=== PATIENT | female | born 1930 | race Caucasian/White ===

== ENCOUNTER 2019-04-26 09:16 | Emergency (ER) | payer MEDICARE ==
[~2019-04-26] VITALS: Ht 160 cm; Wt 75.0 kg
[~2019-04-26 09:16] MED LIST: CARBAMAZEPIN100 M1 PO; DIFLUCAN150 MG PO; FLUARIX QUADRIV1 INJ IM; FLUZONE SPLT1 M1 IM; HYZAAR1 TA1 PO; LEVOTHYROXIN50 MC1 PO; METOPROLOL50 M1 PO; ZOLOFT25 MG PO
[2019-04-26 10:02] LABS: URINE BLOOD DIPSTICK LARGE (NEGATIVE); URINE GLUCOSE - DIPSTICK NEGATIVE (NEGATIVE); URINE KETONE NEGATIVE (NEGATIVE); URINE NITRITE - DIPSTICK NEGATIVE (Negative); URINE PROTEIN - DIPSTICK TRACE mg/dL (NEG-TRACE); URINE SPECIFIC GRAVITY 1.025; URINE UROBILINOGEN - DIPSTICK 0.2 E.U./dL (0.2)
[2019-04-26 10:11] LABS: URINE BILIRUBIN - DIPSTICK SMALL (NEGATIVE); URINE COLOR DK. YELLOW; URINE LEUK ESTERASE MODERATE (NEGATIVE)
[2019-04-26 10:12] LABS: URINE EPITHELIAL CELLS FEW EPI/hpf (0-FEW)
[2019-04-26 10:13] LABS: URINE BACTERIA MODERATE hpf; URINE MUCUS MODERATE hpf (NONE-FEW)
[2019-04-26] MEDS ORDERED: LEVOTHYROXIN75 MCG PO (10:13)
[2019-04-26 10:21] LABS: HEMATOCRIT 29.5 % (37.0-47.0); HEMOGLOBIN 10.1 g/dl (12.0-16.0); IMMATURE GRANULOCYTES 1.1 % (0.0-5.0); MEAN CELL VOLUME 91.6 fL CALC (80.0-100.0); MEAN CORPUSCULAR HGB 31.4 pG CALC (26.0-32.0); MEAN CORPUSCULAR HGB CONC 34.2 g/L CALC (32.0-36.0); NEUT# 7.23 thou/uL (2.00-7.15); RED BLOOD COUNT 3.22 mill/uL (4.20-5.60); RED CELL DISTRI WIDTH 18.6 % (11.5-15.5)
[2019-04-26 10:32] LABS: ALBUMIN 3.9 g/dL (3.2-5.0); ALKALINE PHOSPHATASE 64 u/l (38-126); ANION GAP 15 (6-22 (CALC)); BUN 17 mg/dL (8-23); BUN/CREATININE RATIO 29 (12-20 (CALC)); CARBON DIOXIDE 25 mmol/l (22-30); CHLORIDE 97 mmol/l (95-108); CREATININE 0.6 mg/dL (0.5-1.0); GFR > 60 ML/MIN (>=60 (CALC)); GFR FOR AFR.AMER. > 60 ML/MIN (>=60 (CALC)); LIPASE 35 u/l (23-300); POTASSIUM 3.3 mmol/l (3.5-5.1); SGOT/AST 17 u/l (9-36); SODIUM 134 mmol/l (137-146)
[2019-04-26 10:33] LABS: BILIRUBIN, TOTAL 1.6 mg/dL (0.0-1.4)
[2019-04-26] MEDS ORDERED: CEPHALEXIN500 M1 PO ×2 (10:45→11:02)
[2019-04-26] MEDS ORDERED: K-TAB20 MEQ PO ×2 (10:46→11:02)
[2019-04-26 10:54] VITALS: BP 138/62
== END 2019-04-26 11:01 | disposition home or self-care (01) ==
LOC: ED 09:16
PROVIDERS: Family Medicine
DX: N39.0 Urinary tract infection, site not specified (principal)